=== PATIENT | male | born 1985 | race Two or more races ===

== ENCOUNTER 2017-06-05 05:11 | Inpatient (IN) | payer SELFPAY ==
[2017-06-05 05:41] LABS: Hematocrit 42 % (42-52); Hemoglobin 13.6 g/dl (14.0-18.0); Mean Corpuscular HGB Conc 33 g/dl (31-36); Mean Corpuscular Hemoglobin 30 pg (27-31); Mean Corpuscular Volume 93 fL (80-94); Mean Platelet Volume 9 um3 (7.4-10.4); Red Blood Count 4.48 10^6/ul (4.0-5.4); Red Cell Distribution Width 15 % (10.5-15); White Blood Count 10.9 10^3/ul (3.5-10.8)
[2017-06-05 05:55] LABS: ALT 12 U/L (7-52); AST 17 U/L (13-39); Acetaminophen < 15 mcg/mL; Alcohol < 10 mg/dL (<10); Alkaline Phosphatase 86 U/L (34-104); Anion Gap 3 mmol/L (2-11); BUN/Creatinine Ratio 12.5 (8-20); Blood Urea Nitrogen 11 mg/dL (6-24); CO2 Carbon Dioxide 30 mmol/L (22-32); Calcium 8.9 mg/dL (8.6-10.3); Chloride 106 mmol/L (101-111); EGFR African American 129.1 (>60); EGFR Non-African American 100.4 (>60); Globulin 2.9 g/dL (2-4); Glucose 86 mg/dL (70-100); Salicylate < 2.50 mg/dL (<30); Sodium 139 mmol/L (133-145); Total Protein 6.9 g/dL (6.4-8.9)
[2017-06-05 06:06] LABS: TSH (Thyroid Stimulating Horm) 0.61 mcIU/mL (0.34-5.60)
--- NOTE | 2017-06-05 06:59 | ED ---
Ashwin Alaniz Alok, scribed for Kervin Sorensen MD on 06/05/17 at 0533 . Psychiatric Complaint - HPI Summary HPI Summary: 32M presents to the ED with depression and is seeking mental health evaluation. Pt notes desire to hurt himself without plan. Pt denies self-inflicted cuts or wounds. Pt notes trouble sleeping, decreased appetite, an paranoid thoughts. Pt denies auditory hallucinations, abd pain, or lower extremity edema. Pt smokes tobacco and admits to illicit drug use. Pt denies ETOH use. Pt states he has been admitted for psychiatric evaluation before in [place]. Pt does not see a counselor but has seen one before. Pt does not take medications for depression. - History Of Current Complaint Chief Complaint: EDMentalHealth Time Seen by Provider: 06/05/17 05:16 Hx Obtained From: Patient Onset/Duration: Still Present Timing: Constant Severity Initially: Moderate Severity Currently: Moderate Character: Depressed Alleviating Factor(s): Nothing Associated Signs And Symptoms: Positive: Paranoid Behavior, Sleep Disturbance, Appetite Change. Negative: Hallucinating Has Suicidal: Denies: With A Plan PMH/Surg Hx/FS Hx/Imm Hx Endocrine/Hematology History: Denies: Hx Diabetes Cardiovascular History: Denies: Hx Hypertension - Family History Known Family History: Negative: Hypertension - Social History Occupation: Student Lives: With Family Alcohol Use: None Hx Substance Use: Yes Hx Tobacco Use: Yes Type: Cigarettes Review of Systems Negative: Fever Negative: Abdominal Pain Negative: Edema Positive: Depressed All Other Systems Reviewed And Are Negative: Yes Physical Exam - Summary Physical Exam Summary: The patient is well-nourished in no acute distress and in no acute pain. The skin is warm and dry and skin color reflects adequate perfusion. No cuts to arms. HEENT: The head is normocephalic and atraumatic. The pupils are equal and reactive. The conjunctivae are clear and without drainage. Nares are patent and without drainage. Mouth reveals moist mucous membranes and the throat is without erythema and exudate. The external ears are intact. The ear canals are patent and without drainage. The tympanic membranes are intact. Neck is supple with full range of motion and non-tender. There are no carotid bruits. There is no neck vein distension. Respiratory: Chest is non-tender. Lungs are clear to auscultation and breath sounds are symmetrical and equal. Cardiovascular: Heart is regular rate and rhythm. There is no murmur or rub auscultated. There is no peripheral edema and pulses are symmetrical and equal. Abdomen: The abdomen is soft and non-tender. There are normal bowel sounds heard in all four quadrants and there is no organomegaly palpated. Musculoskeletal: There is no back pain noted. Extremities are non-tender with full range of motion. There is good capillary refill. There is no peripheral edema or calf tenderness elicited. Neurological: Patient is alert and oriented to person, place and time. The patient has symmetrical motor strength in all four extremities. Cranial nerves are grossly intact. Deep tendon reflexes are symmetrical and equal in all four extremities. Psychiatric: The patient has an appropriate affect and does not exhibit any anxiety or depression. Patient shows poor eye-contact. Triage Information Reviewed: Yes Vital Signs On Initial Exam: Initial Vitals Temp Pulse Resp BP Pulse Ox 97.8 F 64 16 117/65 100 06/05/17 05:22 06/05/17 05:22 06/05/17 05:22 06/05/17 05:22 06/05/17 05:22 Vital Signs Reviewed: Yes Diagnostics - Vital Signs Vital Signs Temp Pulse Resp BP Pulse Ox 06/05/17 05:22 97.8 F 64 16 117/65 100 - Laboratory Lab Results: Lab Results 06/05/17 06/05/17 Range/Units 05:30 05:30 WBC 10.9 H (3.5-10.8) 10^3/ul RBC 4.48 (4.0-5.4) 10^6/ul Hgb 13.6 L (14.0-18.0) g/dl Hct 42 (42-52) % MCV 93 (80-94) fL MCH 30 (27-31) pg MCHC 33 (31-36) g/dl RDW 15 (10.5-15) % Plt Count 184 (150-450) 10^3/ul MPV 9 (7.4-10.4) um3 Neut % (Auto) 39.4 (38-83) % Lymph % (Auto) 44.3 (25-47) % [place] % (Auto) 13.1 H (1-9) % Eos % (Auto) 2.0 (0-6) % Baso % (Auto) 1.2 (0-2) % Absolute Neuts (auto) 4.3 (1.5-7.7) 10^3/ul Absolute Lymphs (auto) 4.8 (1.0-4.8) 10^3/ul Absolute Monos (auto) 1.4 H (0-0.8) 10^3/ul Absolute Eos (auto) 0.2 (0-0.6) 10^3/ul Absolute Basos (auto) 0.1 (0-0.2) 10^3/ul Absolute Nucleated RBC 0.02 10^3/ul Nucleated RBC % 0.2 Sodium 139 (133-145) mmol/L Potassium 4.0 (3.5-5.0) mmol/L Chloride 106 (101-111) mmol/L Carbon Dioxide 30 (22-32) mmol/L Anion Gap 3 (2-11) mmol/L BUN 11 (6-24) mg/dL Creatinine 0.88 (0.67-1.17) mg/dL Est GFR ( Amer) 129.1 (>60) Est GFR (Non-Af Amer) 100.4 (>60) BUN/Creatinine Ratio 12.5 (8-20) Glucose 86 (70-100) mg/dL Calcium 8.9 (8.6-10.3) mg/dL Total Bilirubin 0.20 (0.2-1.0) mg/dL AST 17 (13-39) U/L ALT 12 (7-52) U/L Alkaline Phosphatase 86 (34-104) U/L Total Protein 6.9 (6.4-8.9) g/dL Albumin 4.0 (3.2-5.2) g/dL Globulin 2.9 (2-4) g/dL Albumin/Globulin Ratio 1.4 (1-3) TSH 0.61 (0.34-5.60) mcIU/mL Salicylates < 2.50 (<30) mg/dL Acetaminophen < 15 mcg/mL Serum Alcohol < 10 (<10) mg/dL Result Diagrams: 06/05/17 05:30 06/05/17 05:30 Lab Statement: Any lab studies that have been ordered have been reviewed, and results considered in the medical decision making process. Course/Dx - Course Course Of Treatment: 32 y/o male presents with depression seeking mental health evaluation. Patient medically clear for MHU evaluation @ 0557 - Differential Dx/Clinical Impression Differential Diagnosis/HQI/PQRI: Positive: Depression, Suicidal Ideation Provider Diagnosis: Depression Discharge - Discharge Plan Condition: Stable Disposition: OTHER Discharge Disposition Comment: pending mental health evaluation Referrals: Non Staff,Doctor [Primary Care Provider] - The documentation as recorded by the Ashwin hooks Alok accurately reflects the service I personally performed and the decisions made by me, Kervin Sorensen MD.
[2017-06-05 08:02] LABS: Urine Bilirubin Negative (Negative); Urine Glucose Negative (Negative); Urine Nitrite Negative (Negative)
[2017-06-05 08:30] LABS: Benzodiazepine Urine Screen None Detected (None Detect)
[2017-06-05] MEDS ORDERED: Al Hydrox/Mg Hydrox/Simet LIQ* 30 ML UDC PO PRN (09:07)
[2017-06-05] MEDS: Vitamin THERAPEUTIC TAB PO SCH (14:17)
--- NOTE | 2017-06-05 18:19 | HP ---
HISTORY AND PHYSICAL: DATE OF ADMISSION: 06/05/17 SUPERVISING PSYCHIATRIST: Dr. Mac Ward * (DICTATED BY DEEPAK FULLER NP) JUSTIFICATION FOR ADMISSION: The patient presents to the emergency room via ambulance with complaints of depression and suicidal ideation with thoughts to jump off a bridge. He has been engaging in polysubstance use including heroin, cocaine, and marijuana. He is currently undomiciled and recently lost custody of his children. CHIEF COMPLAINT: "I don't want to talk about it." HISTORY OF PRESENT ILLNESS: Most of the information obtained is through the electronic medical record as the patient was minimally cooperative with interview. The patient was brought in by ambulance and at approximately 5 o' clock this morning. He called the ambulance with intent to come to the hospital due to increased depression and suicide ideation for the past week. He reports that his situation has worsened since CPS involvement last Friday. According to the mental health evaluation, Yovany had thoughts of jumping off a bridge. He and his children's mother broke up last week and he has not had a place to live since then. Also, CPS has been involved in the past because mother was not taking care of the children. Apparently, the child is in foster care in [facility]. He states that she is currently but he is pretty certain that that is not his child. After decision was made to admit the patient, I tried to let him sleep before meeting with him. At time of interview, the patient was sleeping, easy to arouse. He states he does not want to talk about any of this, but was cooperative with some of the questions asked. He reports he has been homeless for the past week. He endorses depressed mood and hopelessness and helplessness. He endorses flashbacks and nightmares. He endorses generalized anxiety. When I tried to ask further questions, he states "talking about all this shit is going to make me snap." He endorses decreased sleep approximately 2 hours a day. He states his appetite fluctuates and his weight went up a little bit and attributes this to stopping using substances approximately a week ago. His information today during interview is inconsistent with information in the mental health eval. This is likely due to him to be in a tired state. We will reevaluate psychiatric signs and symptoms again tomorrow. PAST PSYCHIATRIC HISTORY: Yovany states he was in [place] [facility] approximately in 2007. He reports being in [facility] in 2015. This information is also a little bit incongruent with the mental health evaluation. Yovany states that he has taken psychotropic medications in the past and states "I don't know what this shit is called." Later, he reports that in childhood, he has taken Prozac and Zoloft likely. He also recalls taking ADHD medications. When asked about use of trazodone for sleep, he states "I've taken them before and that makes it hard to sleep, I have dreams, and I couldn' t breathe." According to the mental health evaluation, Yovany found his mother in 2007. PAST MEDICAL HISTORY: No active medical problems that he is aware of. According to the evaluation in the emergency room, he denies history of diabetes or hypertension. He denied any pain or distress. He denied any self- inflicted injuries. PRIMARY CARE PROVIDER: No current primary care provider. MEDICATIONS: He denies any current medications. ALLERGIES: PENICILLIN. FAMILY PSYCHIATRIC HISTORY: Unknown at this time. SOCIAL HISTORY: He states he was raised in many cities in [place] including [facility], and [place]. He had been living with the mother of his children. He said he is of black and [place] descent. He states he is single, unmarried. He reports he has children, but did not want to give me their names or ages. He reports smoking cigarettes approximately 1-1/2 packs per day. He states that he stopped using substances approximately a week ago and denies withdrawal symptoms. He denies street use of Suboxone or methadone. His urine drug screen was positive for cocaine and cannabis. Further psychosocial history to be obtained when the patient is cooperative with health and social care teacher. PHYSICAL EXAMINATION I defer to the emergency room exam. The patient refuses physical exam today. He is noted to have bilateral tattoos on both arms. No cuts, no lacerations or abrasions. VITAL SIGNS: This morning, temperature 98.4, pulse 62, respiratory rate 18, O2 sat of 100%, blood pressure 110/65. Height 5 feet 11 inches, 140 pounds. MENTAL STATUS EXAM: The patient is lying in bed with covers either up to his chin or over his head. He is irritable and evasive. He is vague with answers and declines to go into details. He is alert and oriented x3. His concentration is poor. His memory is fair. His mood is angry. Affect constricted. Speech is soft and mumbled. Thought process is circumstantial. Thought content is positive for SI, negative for delusions, HI, or . Insight and judgment are poor. LABORATORY DATA: From emergency room this morning, his white blood cell count was 10.9, hemoglobin 13.6. CBC otherwise unremarkable. Chemistry was within normal limits. TSH normal at 0.61 and as stated above, his urine drug screen was positive for cocaine and cannabis. His toxicology was negative for salicylates, acetaminophen, and alcohol. DIAGNOSES: [place] I: Cocaine use disorder, cannabis use disorder, opiate use disorder by the patient's report; rule out posttraumatic stress disorder. [place] II: Deferred. [place] III: No active medical problem. [place] IV: Severe psychosocial stressors related to homelessness, loss of relationship with children and girlfriend, financial strain. [place] V: 30. ASSESSMENT: Yovany is a 32-year-old black [place] male, who presented to the emergency department with reports of increased depression and suicidal ideation. He reports past suicidal attempts and posttraumatic stress disorder due to finding his mother . He recently broke up with mother of his children and is homeless and there is CPS involvement, so he does not have contact with his children. He reports trying to abstain from heroin, cocaine, and cannabis, and is agreeable to substance use treatment. PLAN: Admit the patient to the psychiatric unit on voluntary status. Code status is full. Safety checks every 15 minutes. He will be encouraged to participate in supportive milieu and individual and group psychoeducation. We will obtain an MMPI for diagnostic clarification. The patient requests nicotine replacement, which will be made available to him. He agrees to use of clonidine for anxiety and with added benefit on ADHD symptoms and he agrees to use mirtazapine at bedtime for both mood and sleep and appetite. Discharge planning will include gaining collateral from current relationships pending release of information from the patient. Client also expressed desire to pursue inpatient substance use treatment. Estimated length of stay is 5 to 7 days. DEEPAK FULLER, JONO [id number]/[facility] #: [id number] [facility]
[2017-06-05] MEDS: Mirtazapine TAB* 15 MG PO SCH (21:00)
[2017-06-05] MEDS: cloNIDine TAB* 0.1 MG PO SCH (21:00)
[2017-06-05] MEDS: Nicotine Patch Removal NOTE FOLLOW UP SCH (21:01)
[2017-06-06] MEDS: Vitamin THERAPEUTIC TAB PO SCH (09:44)
[2017-06-06] MEDS: cloNIDine TAB* 0.1 MG PO SCH ×2 (09:44→20:37)
[2017-06-06] MEDS: Nicotine PATCH 21 MG/24 HR* PATCH TRANSDERM SCH (11:03)
[2017-06-06] MEDS ORDERED: Mouth Piece, Nicotine* 1 EACH CARTRIDGE INH ONE (12:00)
[2017-06-06] MEDS: hydrOXYzine HCL TAB* 50 MG PO PRN (12:52)
[2017-06-06] MEDS: Nicotine GUM* 2 MG PO PRN (12:53)
--- NOTE | 2017-06-06 15:18 | PN ---
Subjective - Subjective Subjective: Yovany has been exclusive to self except for meals. Patient is intermittently interactive with staff. He is recanting all statements made in the ED. He states he wants to be discharged in order to pursue DSS benefits and custody of his 4yo daughter, Kimmy. He states he "I don't do drugs anymore, I just messed up 2 days ago." He states he does not need inpatient rehab but would be willing to be referred to outpatient rehab. He goes on to describe frustrations with the mother of his children selling the children's food stamps , him being sanctioned by DSS and difficulty with obtaining help in [place]. He expresses urgency in trying to get custody of Kimmy before she is placed in a foster home and prison rights are lost. He placed a formal 72-hour notice for discharge at 1pm. Objective - Appearance Appearance: Thin Framed Dysmorphic Features: Yes Hygiene: Normal Grooming: Disheveled - Behavior Psychomotor Activities: Abnormal-Increased - fidgety, changes position often Exhibits Abnormal Movement: Yes - Attitude and Relatedness Attitude and Relatedness: Minimally Cooperative Eye Contact: Poor - Speech Quality: Pressured Latencies: Normal Quantity: Copious - Mood Patient's Decription of Mood: "Fine" Assessment - Assessment Merits Inpatient Hospitalization: For Immediate Safety, For Stabilization, For Discharge Planning, Pending Safe DC Plan Inpatient DSM-IV Dx: cocaine induced mood d/o; cannabis use d/o; opiate use d/o ; tobacco use d/o Clinical Impression: Yovany is a 32yo black/nigerian male who presented to the ED with suicidal ideation and a plan. He presents as agitated and actively withdrawing from substances. He recants the statements he made in the ED and denies suicidal ideation or need for inpatient substance use treatment. He initiated a formal 72-hour request for discharge at 1pm. Plan - Plan Treatment Plan: Name: YOVANY PEMBERTON Birthdate: 1985 [id number] Will continue to treat and monitor for s/sx of withdrawal. Will encourage [facility] programming and partnering for discharge planning. Add thorazine prn for agitation/anxiety. Continued Medication Management: Different Medication Medications: Current Medications Acetaminophen (Tylenol Tab*) 650 mg PO Q4H PRN PRN Reason: for pain; or Temp >101 F Al Hydrox/Mg Hydrox/Simethicone (Maalox Plus*) 30 ml PO Q4H PRN PRN Reason: INDIGESTION Clonidine HCl (Catapres Tab*) 0.1 mg PO BID [facility] Last Admin: 06/06/17 09:44 Dose: 0.1 mg Hydroxyzine HCl (Atarax Tab*) 50 mg PO Q6H PRN PRN Reason: AGITATION/ANXIETY/INSOMNIA Last Admin: 06/06/17 12:52 Dose: 50 mg Mirtazapine (Remeron Tab*) 15 mg PO BEDTIME [facility] Last Admin: 06/05/17 21:00 Dose: 15 mg Multivitamins (Theragran Tab*) 1 tab PO DAILY [facility] Last Admin: 06/06/17 09:44 Dose: 1 tab Nicotine (Nicotine Inhaler*) 10 mg INH Q2H PRN PRN Reason: CRAVING Nicotine (Nicotine Patch 21 Mg/24 Hr*) 1 patch TRANSDERM DAILY@0800 [facility] Last Admin: 06/06/17 11:03 Dose: 1 patch Nicotine Polacrilex (Nicotine Gum*) 2 mg PO Q2H PRN PRN Reason: CRAVING Last Admin: 06/06/17 12:53 Dose: 2 mg Pharmacy Profile Note (Nicotine Patch Removal Note*) 1 note FOLLOW UP 2100 [facility] Last Admin: 06/05/17 21:01 Dose: Not Given - Discharge Plan Discharge Plan: Outpatient Follow Up Outpatient Program: [facility]
[2017-06-06] MEDS: chlorproMAZINE TAB* 50 MG PO PRN (16:00)
[2017-06-06] MEDS: Mirtazapine TAB* 15 MG PO SCH (20:37)
[2017-06-06] MEDS: Nicotine Patch Removal NOTE FOLLOW UP SCH (20:38)
[2017-06-07] MEDS: cloNIDine TAB* 0.1 MG PO SCH ×2 (08:09→20:34)
[2017-06-07] MEDS: Nicotine PATCH 21 MG/24 HR* PATCH TRANSDERM SCH (08:09)
[2017-06-07] MEDS: Vitamin THERAPEUTIC TAB PO SCH (08:09)
[2017-06-07] MEDS: Acetaminophen TAB* 325 MG PO PRN (08:10)
[2017-06-07] MEDS: Nicotine Inhaler* 10 MG AMP INH PRN ×4 (10:48→20:34)
[2017-06-07] MEDS: chlorproMAZINE TAB* 50 MG PO PRN (11:52)
[2017-06-07] MEDS: Nicotine GUM* 2 MG PO PRN ×2 (17:32→20:34)
[2017-06-07] MEDS: hydrOXYzine HCL TAB* 50 MG PO PRN (18:23)
[2017-06-07] MEDS: Mirtazapine TAB* 15 MG PO SCH (20:34)
[2017-06-07] MEDS: Nicotine Patch Removal NOTE FOLLOW UP SCH (20:36)
[2017-06-08] MEDS: Nicotine PATCH 21 MG/24 HR* PATCH TRANSDERM SCH (08:12)
[2017-06-08] MEDS: Nicotine Inhaler* 10 MG AMP INH PRN ×6 (08:12→21:12)
[2017-06-08] MEDS: cloNIDine TAB* 0.1 MG PO SCH ×2 (08:13→20:54)
[2017-06-08] MEDS: Vitamin THERAPEUTIC TAB PO SCH (08:13)
[2017-06-08] MEDS: Nicotine GUM* 2 MG PO PRN ×3 (10:14→18:28)
[2017-06-08] MEDS: chlorproMAZINE TAB* 50 MG PO PRN ×2 (12:53→20:52)
--- NOTE | 2017-06-08 19:15 | PN ---
Subjective - Subjective Subjective: Found Yovany in the milieu working on MMPI questionnaire, he endorses improving mood, denies SI/HI or withdrawal symptoms. He is agreeable to continued admission, (has not rescinded the 72-hour notice however). He reports plans to move in with his brother after discharge. Per staff, he has been in good behavioral control and adherent to unit's routines. Objective - Appearance Appearance: Healthy Appearing Dysmorphic Features: No Hygiene: Normal Grooming: Well Kept - Behavior Psychomotor Activities: Normal Exhibits Abnormal Movement: No - Attitude and Relatedness Attitude and Relatedness: Superficially Cooperative Eye Contact: Fair - Speech Quality: Pressured Latencies: Normal Quantity: Appropriate - Mood Patient's Decription of Mood: "Okay" - Affect Observed Affect: Non-labile Affect Consistent with: Dysphoria - Thought Process Patient's Thought Process: Over Inclusive Thought Content: No Passive Wish, No Suicidal Planning, No Homicidal Ideation, No Paranoid Ideation - Sensorium Experiencing Hallucinations: No, Sensorium is Clear - Level of Consciousness Level of Consciousness: Alert Orientation: Yes Intact - Impulse Control Impulse Control: Intact - Insight and Judgement Insight and Judgement: Poor - Group Participation Particating in Group Activities: Yes - Medication Management Medication Management Adherence: Yes Assessment - Assessment Merits Inpatient Hospitalization: [facility], For Discharge Planning Inpatient DSM-IV Dx: cocaine induced mood d/o; cannabis use d/o; opiate use d/o ; tobacco use d/o Clinical Impression: Safe on checks, endorsing reduced distress level, better willing to follow his care team recommendations. Plan - Plan Treatment Plan: Name: YOVANY PEMBERTON Birthdate: 1985 [id number] Medications: Current Medications Acetaminophen (Tylenol Tab*) 650 mg PO Q4H PRN PRN Reason: for pain; or Temp >101 F Last Admin: 06/07/17 08:10 Dose: 650 mg Al Hydrox/Mg Hydrox/Simethicone (Maalox Plus*) 30 ml PO Q4H PRN PRN Reason: INDIGESTION Chlorpromazine HCl (Thorazine Tab*) 50 mg PO Q6H PRN PRN Reason: AGITATION/ANXIETY Last Admin: 06/08/17 12:53 Dose: 50 mg Clonidine HCl (Catapres Tab*) 0.1 mg PO BID [facility] Last Admin: 06/08/17 08:13 Dose: 0.1 mg Hydroxyzine HCl (Atarax Tab*) 50 mg PO Q6H PRN PRN Reason: AGITATION/ANXIETY/INSOMNIA Last Admin: 06/07/17 18:23 Dose: 50 mg Mirtazapine (Remeron Tab*) 15 mg PO BEDTIME [facility] Last Admin: 06/07/17 20:34 Dose: 15 mg Multivitamins (Theragran Tab*) 1 tab PO DAILY [facility] Last Admin: 06/08/17 08:13 Dose: 1 tab Nicotine (Nicotine Inhaler*) 10 mg INH Q2H PRN PRN Reason: CRAVING Last Admin: 06/08/17 18:28 Dose: 10 mg Nicotine (Nicotine Patch 21 Mg/24 Hr*) 1 patch TRANSDERM DAILY@0800 [facility] Last Admin: 06/08/17 08:12 Dose: 1 patch Nicotine Polacrilex (Nicotine Gum*) 2 mg PO Q2H PRN PRN Reason: CRAVING Last Admin: 06/08/17 18:28 Dose: 2 mg Pharmacy Profile Note (Nicotine Patch Removal Note*) 1 note FOLLOW UP 2100 [facility] Last Admin: 06/07/17 20:36 Dose: 1 note - Discharge Plan Discharge Plan: Drug/Alcohol Rehab Outpatient Program: [facility]
[2017-06-08] MEDS: Nicotine Patch Removal NOTE FOLLOW UP SCH (20:54)
[2017-06-08] MEDS: Mirtazapine TAB* 15 MG PO SCH (20:54)
[2017-06-08] MEDS: Acetaminophen TAB* 325 MG PO PRN (21:12)
[2017-06-09 07:22] VITALS: BP 104/65
[2017-06-09] MEDS: Acetaminophen TAB* 325 MG PO PRN (07:29)
[2017-06-09] MEDS: Nicotine Inhaler* 10 MG AMP INH PRN ×3 (08:18→13:12)
[2017-06-09] MEDS: Vitamin THERAPEUTIC TAB PO SCH (08:19)
[2017-06-09] MEDS: cloNIDine TAB* 0.1 MG PO SCH (08:19)
[2017-06-09] MEDS: Nicotine PATCH 21 MG/24 HR* PATCH TRANSDERM SCH (08:19)
[2017-06-09] MEDS ORDERED: buPROPion TAB* 100 MG PO SCH (11:00)
[2017-06-09] MEDS: Nicotine GUM* 2 MG PO PRN ×2 (11:08→13:12)
--- NOTE | 2017-06-09 22:11 | CONS ---
PSYCHOLOGICAL REPORT: DATE OF CONSULT: 06/09/17 REASON FOR REFERRAL: Yovany was referred for psychological testing in order to help with diagnostic impressions with concerns regarding characterological vulnerabilities consistent with antisocial personality disorder. Concerns are also to address possible lethality as Yovany had made statements regarding jumping from a bridge. RELEVANT HISTORY: Yovany describes recently losing custody of a son secondary to relapse with substance abuse. Historically, he describes heroin as his drug of choice, but more recently has been using cocaine and marijuana. Yovany describes falling into despair after losing custody of his son who currently is in placement with a family member. An older daughter apparently has been placed in foster care system in [place]. He described how his family would have taken her, but she is a high needs child who is difficult to manage. Yovany describes how the mother of the children is "slowly killing herself with drugs." Yovany reports completing 10th grade at [employer] and subsequently has struggled to maintain employment. 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 He describes historically being eligible for SSI and is making plans to complete his application for this program. He describes missing an appointment while in [place] secondary to being unfamiliar with the [facility] and was experiencing a great deal of personal chaos at the time. BEHAVIORAL OBSERVATIONS: Yovany is a 32-year-old -Mac[place] male who currently is homeless, but describes having personal resources connected to his family which will be helpful. In particular, he describes having a brother who is in a similar situation in terms of trying to regain custody of his children and remain sober, with hopes of being able to find an apartment with him in order to support each other. He describes intentions of engaging in [employer] programming where he expects to be enrolled and kept busy with scheduling there. He is hopeful of regaining custody of his son and currently denies any further thoughts of suicide. He characterized his statements as being out of anger and frustration and now that has resolved. He expresses prosocial goals and interests. Indeed, Yovany presents with good affect and was attentive and participatory in unit programing this morning and cooperative with individual discussion addressing feedback regarding test results. He initiated conversation and asked questions in a spontaneous fashion. TEST RESULTS: Yovany provides a valid protocol on this administration of the MMPI-2 with clinical concerns addressing impulsivity and anger. He has a minimal elevation on the FB scale (T=67), with subsequent elevations on both the psychopathic deviate and paranoia scales on clinical indices (T=75 and 73 respectively). He has a similar elevation on the schizophrenia scale with a lesser elevation on the anxiety index as well. Of note, his depression scale is subclinical (T=63). Feedback with Yovany emphasized importance of adhering to social rules and conventions in conduct and more reasoning. Feedback encouraged diminished expressed impulsivity with allusion to how he used the quiet room over the weekend to try to manage anger and frustration. Yovany expressed some regret that he had gone into the padded room and punched the cat as he apparently hurt his had to some degree. He describes the importance of using his voice in a more effective way moving forward and refraining from acting in an aggressive and impulsive fashion like that. He impressed as having good insight in regards to this discussion and his judgment appears to have cleared since his admission. IMPRESSIONS AND RECOMMENDATIONS: Yovany anticipates discharge either today or likely tomorrow, with hopes of adherence to the aforementioned participation in the [facility] Outpatient Program. He describes having good family supports here locally and intends to comply with treatment recommendations. Continuing therapeutic interventions should focus on substance abuse history and propensity towards impulsive acting out. Currently, Yovany impresses as being cooperative and forward thinking and has spontaneously expressed prosocial goals in regards to his family role as well as in refraining from continued illicit drug activity. 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 Bybee II: Rule out antisocial personality traits. Bybee III: No medical concerns presently. Bybee IV: Severe psychosocial stressors related to homelessness and loss of familial status. Bybee V: Current GAF 45. [id number]/CPS #: [id number] [facility]
--- NOTE | 2017-06-10 15:16 | DS ---
DISCHARGE SUMMARY: DATE OF ADMISSION: 06/05/17 DATE OF DISCHARGE: 06/09/17 SUPERVISING PSYCHIATRIST: Mac Ward MD DISCHARGE DIAGNOSES: Montgomery I: Posttraumatic stress disorder, cocaine use disorder, cannabis use disorder, tobacco use disorder. Montgomery II: Consider antisocial personality traits. Montgomery III: No active medical problem. Montgomery IV: Psychosocial stressors related to tenuous housing, Child Protective Service involvement with his children, and unemployment and financial strain. CONDITION AT THE TIME OF DISCHARGE: Improved. Today, Yovany states he is very much willing to pursue outpatient mental health and substance use treatment. He apologizes for his aggressive behavior while on the unit. He states that he wants to get his life in order and pursue stable housing. He states that he wants to be able to provide for his daughter and does not want her to be in the foster care system. He has contacted family members in [place] and is looking forward to residing with his brother who is also in recovery. He states that they are going to look into obtaining section 8 housing. In the meantime, he is also agreeable to temporary housing at the alf. Also, he has an aunt with whom he can stay temporarily at [facility]. Yovany has been pleasant and cooperative on the unit over the weekend. He has been participating in groups and been social with staff and peers. He denied suicidal ideation and he denies urges to use substances. He is knowledgeable about barriers to recovery and risk of relapse. He states he wants to avoid people that he knows from previous substance use and he wants to avoid the [place] area. He inquires about medication for ADHD and reports being treated for this as a child. He is agreeable to a non-control substance such as Wellbutrin. He states understanding that clonidine is effective for ADHD-related impulse control as well. He reports efficacy with mirtazapine for sleep and would like to continue these current medications after discharge. Yovany states that he would also like to pursue mental health counseling in order to treat his trauma and abuse history. MENTAL STATUS EXAM: The patient is a tall, thin-framed black male who appears stated age. He is appropriately groomed and wearing his own clothing. He has an eyebrow piercing and a small amount of facial hair. He is cooperative and answers questions fully. He is alert and oriented x3. Concentration is fair. Memory is 3/3. Mood is "good." Affect is bright. Speech is rapid with normal volume. Thought process is coherent and goal directed. Thought content is negative for SI, HI, AA, audio or visual hallucinations. His insight is good. His judgment is fair. Fund of knowledge is good. Instructions will be given to the patient by nursing staff. Medications are bupropion 100 mg p.o. q.a.m., clonidine 0.1 mg p.o. b.i.d., and mirtazapine 15 mg p.o. q.h.s. He denies tobacco cessation or nicotine replacement. DIET: Regular. ACTIVITY: Ambulation as tolerated. There are no pending labs or diagnostic studies at the time of discharge. He will follow up with [facility] and [facility] as outpatient. He states knowledge of these and he will be given appointments by discharge planning. HOSPITAL COURSE: A. Reason for admission: The patient presented to the emergency room via ambulance with complaints of depression and suicidal ideation with thoughts to jump off a bridge. He had been engaging in polysubstance abuse including heroin, cocaine, and marijuana. He recently attempted to relocate to [place], then lost housing and custody of his child. B. Psychiatric treatment rendered: Yovany was admitted to the psychiatric unit on voluntary status. Code status is full. He was placed on 15-minute checks for safety and encouraged to participate in supportive milieu and individual and group psychoeducation. He initiated a 72-hour notice to request discharge on Friday at 1 p.m. He was clearly agitated and recanting his reports made in the emergency room. He was requesting to leave. Discharge planning and myself did not feel this was safe plan at that time and encouraged the patient to remain on the unit during the 72-hour notice to engage in programming and enable discharge planning. Shortly after this discussion, client was agitated and was destructive in his room. He accepted the offer of p.o. Thorazine and was able to calm himself in a quiet room. He was increasingly cooperative on the unit and engaged in programming. He reported to be triggered at one time and asked to use the quiet room voluntarily, punched cat. He complained of right hand pain, but denied need for medical intervention. Today, the client denies pain. There is no obvious deformity. The patient completed an MMPI for diagnostic clarification, please see the report by Dr. Hans Rutherford. The patient is agreeable to current medications and he asked about use of medication for ADHD, Wellbutrin was added today. The patient agrees to follow up with [facility] and [facility]. He will be staying with his brother and other family members temporarily while obtaining DSS assistance for housing. The patient has been safe on all checks and due to obligation to treat in least restrictive setting, discharge is planned for today. The patient has expressed appreciation for staff's efforts to help with obtaining DSS services and psychiatric services for after care. DEEPAK FULLER NP [id number]/CPS #: [id number] TORST[facility]
== END 2017-06-09 16:25 | disposition home or self-care (01) | DRG 897 ==
LOC: ED 05:11 → BSU 09:07
PROVIDERS: ADMIT Psychiatry & Neurology Psychiatry; ATTEND Psychiatry & Neurology Psychiatry
DX: F14.94 Cocaine use, unspecified with cocaine-induced mood disorder (principal); F11.90 Opioid use, unspecified, uncomplicated; R45.851 Suicidal ideations; F12.90 Cannabis use, unspecified, uncomplicated; F17.210 Nicotine dependence, cigarettes, uncomplicated; F32.9 Major depressive disorder, single episode, unspecified; F43.10 Post-traumatic stress disorder, unspecified; Z59.0 Homelessness; Z88.0 Allergy status to penicillin
CPT/HCPCS: 36415; 80053; 80307; 80320; 80329; 81003; 84443; 85025; 96102; 99222; 99231; 99238; A9270-GY; G0480

== ENCOUNTER → 2017-06-29 20:06 | Emergency (ER) | payer MEDICAID ==
[~2017-06-29 20:06] MED LIST: Mirtazapine TAB* 15 MG PO ONE; Mouth Piece, Nicotine* 1 EACH CARTRIDGE INH ONE; Mouth Piece, Nicotine* 1 EACH CARTRIDGE INH PRN; Mouth Piece, Nicotine* 1 EACH CARTRIDGE ONE; Nicotine Inhaler* 10 MG AMP INH ONE
[2017-06-29 20:59] LABS: Hematocrit 45 % (42-52); Hemoglobin 14.9 g/dl (14.0-18.0); Mean Corpuscular HGB Conc 33 g/dl (31-36); Mean Corpuscular Hemoglobin 30 pg (27-31); Mean Corpuscular Volume 91 fL (80-94); Mean Platelet Volume 10 um3 (7.4-10.4); Red Blood Count 4.91 10^6/ul (4.0-5.4); Red Cell Distribution Width 15 % (10.5-15); White Blood Count 9.1 10^3/ul (3.5-10.8)
[2017-06-29 21:00] LABS: Urine Bilirubin Negative (Negative); Urine Glucose Negative (Negative); Urine Nitrite Negative (Negative)
[2017-06-29 21:12] LABS: Acetaminophen < 15 mcg/mL; Alcohol < 10 mg/dL (<10); Salicylate < 2.50 mg/dL (<30)
[2017-06-29 21:13] LABS: Benzodiazepine Urine Screen None Detected (None Detect)
[2017-06-29 21:13] LABS: ALT 12 U/L (7-52); AST 16 U/L (13-39); Albumin 4.4 g/dL (3.2-5.2); Alkaline Phosphatase 79 U/L (34-104); Anion Gap 4 mmol/L (2-11); Blood Urea Nitrogen 13 mg/dL (6-24); CO2 Carbon Dioxide 28 mmol/L (22-32); Calcium 9.4 mg/dL (8.6-10.3); Chloride 105 mmol/L (101-111); EGFR African American 82.3 (>60); Globulin 2.8 g/dL (2-4); Glucose 102 mg/dL (70-100); Potassium 3.5 mmol/L (3.5-5.0); Sodium 137 mmol/L (133-145); Total Protein 7.2 g/dL (6.4-8.9)
[2017-06-29 21:22] LABS: TSH (Thyroid Stimulating Horm) 0.15 mcIU/mL (0.34-5.60)
--- NOTE | 2017-06-29 21:50 | ED ---
Corazon Alaniz Alfonso, scribed for Qasim Oliva MD on 06/29/17 at 205 . Psychiatric Complaint - HPI Summary HPI Summary: This patient is a 32 year old M ADRIÁN presenting to [facility] with a chief complaint of SI since earlier today. Patient state I do not feel like living anymore. He also states he has not yet attempted to harm himself, but would jump off a bridge. Symptoms aggravated by recent stress (losing a daughter to foster care last week) and alleviated by nothing. Patient reports~insomnia (two days of no sleep), marijuana use, and cocaine use. Patient medically cleared for MHE at 2031. - History Of Current Complaint Chief Complaint: EDMentalHealth Time Seen by Provider: 06/29/17 20:21 Hx Obtained From: Patient Onset/Duration: Sudden Onset, Lasting Hours - earlier today, Still Present Timing: Constant Severity Initially: Moderate Severity Currently: Moderate Aggravating Factor(s): Recent Stress Alleviating Factor(s): Nothing Associated Signs And Symptoms: Positive: Sleep Disturbance Has Suicidal: Reports: Thoughts, With A Plan Ingestion History: Type/Name Of Drug - Marijuana and cocaine - Allergies/Home Medications Allergies/Adverse Reactions: Allergies Allergy/AdvReac Type Severity Reaction Status Date / Time Penicillins Allergy Hives Verified 06/05/17 13:36 PMH/Surg Hx/FS Hx/Imm Hx Endocrine/Hematology History: Denies: Hx Diabetes Cardiovascular History: Denies: Hx Hypertension Sensory History: Denies: Hx Contacts or Glasses, Hx Hearing Aid Opthamlomology History: Denies: Hx Contacts or Glasses Psychiatric History: Reports: Hx Depression, Hx Post Traumatic Stress Disorder, Hx Inpatient Treatment, Hx Substance Abuse Denies: Hx of Violent Episodes Against Others Infectious Disease History: Denies: Traveled Outside the [place] in Last 30 Days - Family History Known Family History: Negative: Hypertension - Social History Alcohol Use: None Hx Substance Use: Yes Substance Use Type: Reports: Cocaine, Marijuana Substance Use Comment - Amount & Last Used: 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 Hx Tobacco Use: Yes Smoking Status (MU): Heavy Every Day Tobacco Smoker Type: Cigarettes Amount Used/How Often: 1 pack cigarettes/day, has never used other forms of tobacco Have You Smoked in the Last Year: Yes Review of Systems Neurological: Other - SI and insomnia Positive: Other - stress, marijuana and cocaine use All Other Systems Reviewed And Are Negative: Yes Physical Exam Triage Information Reviewed: Yes Vital Signs On Initial Exam: Initial Vitals Temp Pulse Resp BP Pulse Ox 99.2 F 88 16 128/83 100 06/29/17 21:19 06/29/17 21:19 06/29/17 21:19 06/29/17 21:19 06/29/17 21:19 Vital Signs Reviewed: Yes Appearance: Positive: Well-Appearing, No Pain Distress Skin: Positive: Warm, Skin Color Reflects Adequate Perfusion, Dry Head/Face: Positive: Normal Head/Face Inspection Eyes: Positive: Normal ENT: Positive: Normal ENT inspection Neck: Positive: Supple, Nontender Respiratory/Lung Sounds: Positive: Clear to Auscultation, Breath Sounds Present Cardiovascular: Positive: RRR Abdomen Description: Positive: Nontender, Soft Bowel Sounds: Positive: Present Musculoskeletal: Positive: Normal Neurological: Positive: Normal, Sensory/Motor Intact, Alert, Oriented to Person Place, Time, CN Intact II-III Psychiatric: Positive: Affect/Mood Appropriate Diagnostics - Vital Signs Vital Signs Temp Pulse Resp BP Pulse Ox 06/29/17 21:19 99.2 F 88 16 128/83 100 - Laboratory Lab Results: Lab Results 06/29/17 06/29/17 06/29/17 Range/Units 20:20 20:20 20:32 WBC 9.1 (3.5-10.8) 10^3/ul RBC 4.91 (4.0-5.4) 10^6/ul Hgb 14.9 (14.0-18.0) g/dl Hct 45 (42-52) % MCV 91 (80-94) fL MCH 30 (27-31) pg MCHC 33 (31-36) g/dl RDW 15 (10.5-15) % Plt Count 152 (150-450) 10^3/ul MPV 10 (7.4-10.4) um3 Neut % (Auto) 66.7 (38-83) % Lymph % (Auto) 24.3 L (25-47) % Hartley % (Auto) 7.5 (1-9) % Eos % (Auto) 0.4 (0-6) % Baso % (Auto) 1.1 (0-2) % Absolute Neuts (auto) 6.1 (1.5-7.7) 10^3/ul Absolute Lymphs (auto) 2.2 (1.0-4.8) 10^3/ul Absolute Monos (auto) 0.7 (0-0.8) 10^3/ul Absolute Eos (auto) 0 (0-0.6) 10^3/ul Absolute Basos (auto) 0.1 (0-0.2) 10^3/ul Absolute Nucleated RBC 0.01 10^3/ul Nucleated RBC % 0.1 Sodium (133-145) mmol/L Potassium (3.5-5.0) mmol/L Chloride (101-111) mmol/L Carbon Dioxide (22-32) mmol/L Anion Gap (2-11) mmol/L BUN (6-24) mg/dL Creatinine (0.67-1.17) mg/dL Est GFR ( Amer) (>60) Est GFR (Non-Af Amer) (>60) BUN/Creatinine Ratio (8-20) Glucose (70-100) mg/dL Calcium (8.6-10.3) mg/dL Total Bilirubin (0.2-1.0) mg/dL AST (13-39) U/L ALT (7-52) U/L Alkaline Phosphatase (34-104) U/L Total Protein (6.4-8.9) g/dL Albumin (3.2-5.2) g/dL Globulin (2-4) g/dL Albumin/Globulin Ratio (1-3) TSH (0.34-5.60) mcIU/mL Urine Color Yellow Urine Appearance Clear Urine pH 5.0 (5-9) Ur Specific Posen 1.017 (1.010-1.030) Urine Protein Negative (Negative) Urine Ketones Trace H (Negative) Urine Blood Negative (Negative) Urine Nitrate Negative (Negative) Urine Bilirubin Negative (Negative) Urine Urobilinogen Negative (Negative) Ur Leukocyte Esterase Negative (Negative) Urine Glucose Negative (Negative) Urine Ascorbic Acid * H (Negative) Salicylates (<30) mg/dL Urine Opiates Screen Presumptive positive H (None Detect) Acetaminophen mcg/mL Ur Barbiturates Screen None detected (None Detect) Ur Phencyclidine Scrn None detected (None Detect) Ur Amphetamines Screen None detected (None Detect) U Benzodiazepines Scrn None detected (None Detect) Urine Cocaine Screen Presumptive positive H (None Detect) U Cannabinoids Screen Presumptive positive H (None Detect) Serum Alcohol (<10) mg/dL 06/29/17 Range/Units 20:32 WBC (3.5-10.8) 10^3/ul RBC (4.0-5.4) 10^6/ul Hgb (14.0-18.0) g/dl Hct (42-52) % MCV (80-94) fL MCH (27-31) pg MCHC (31-36) g/dl RDW (10.5-15) % Plt Count (150-450) 10^3/ul MPV (7.4-10.4) um3 Neut % (Auto) (38-83) % Lymph % (Auto) (25-47) % Hartley % (Auto) (1-9) % Eos % (Auto) (0-6) % Baso % (Auto) (0-2) % Absolute Neuts (auto) (1.5-7.7) 10^3/ul Absolute Lymphs (auto) (1.0-4.8) 10^3/ul Absolute Monos (auto) (0-0.8) 10^3/ul Absolute Eos (auto) (0-0.6) 10^3/ul Absolute Basos (auto) (0-0.2) 10^3/ul Absolute Nucleated RBC 10^3/ul Nucleated RBC % Sodium 137 (133-145) mmol/L Potassium 3.5 (3.5-5.0) mmol/L Chloride 105 (101-111) mmol/L Carbon Dioxide 28 (22-32) mmol/L Anion Gap 4 (2-11) mmol/L BUN 13 (6-24) mg/dL Creatinine 1.30 H (0.67-1.17) mg/dL Est GFR ( Amer) 82.3 (>60) Est GFR (Non-Af Amer) 64.0 (>60) BUN/Creatinine Ratio 10.0 (8-20) Glucose 102 H (70-100) mg/dL Calcium 9.4 (8.6-10.3) mg/dL Total Bilirubin 0.70 (0.2-1.0) mg/dL AST 16 (13-39) U/L ALT 12 (7-52) U/L Alkaline Phosphatase 79 (34-104) U/L Total Protein 7.2 (6.4-8.9) g/dL Albumin 4.4 (3.2-5.2) g/dL Globulin 2.8 (2-4) g/dL Albumin/Globulin Ratio 1.6 (1-3) TSH 0.15 L (0.34-5.60) mcIU/mL Urine Color Urine Appearance Urine pH (5-9) Ur Specific Posen (1.010-1.030) Urine Protein (Negative) Urine Ketones (Negative) Urine Blood (Negative) Urine Nitrate (Negative) Urine Bilirubin (Negative) Urine Urobilinogen (Negative) Ur Leukocyte Esterase (Negative) Urine Glucose (Negative) Urine Ascorbic Acid (Negative) Salicylates < 2.50 (<30) mg/dL Urine Opiates Screen (None Detect) Acetaminophen < 15 mcg/mL Ur Barbiturates Screen (None Detect) Ur Phencyclidine Scrn (None Detect) Ur Amphetamines Screen (None Detect) U Benzodiazepines Scrn (None Detect) Urine Cocaine Screen (None Detect) U Cannabinoids Screen (None Detect) Serum Alcohol < 10 (<10) mg/dL Result Diagrams: 06/29/17 20:32 06/29/17 20:32 Lab Statement: Any lab studies that have been ordered have been reviewed, and results considered in the medical decision making process. Course/Dx - Course Course Of Treatment: Mr. Prather has been medically cleared and is awaiting MHE. - Differential Dx/Clinical Impression Provider Diagnosis: Suicide ideation Discharge - Discharge Plan Condition: Stable Disposition: OTHER Discharge Disposition Comment: Signed out pending shift change. Referrals: Non Staff,Doctor [Primary Care Provider] - The documentation as recorded by the Corazon hooks Alfonso accurately reflects the service I personally performed and the decisions made by , Qasim Oliva MD.
[2017-06-30 11:26] VITALS: BP 134/66
== END ==
LOC: ED 20:06
DX: R45.851 Suicidal ideations (principal); F32.9 Major depressive disorder, single episode, unspecified; Z04.8 Encounter for examination and observation for other specified reasons; Z88.0 Allergy status to penicillin; F14.90 Cocaine use, unspecified, uncomplicated; F12.90 Cannabis use, unspecified, uncomplicated; F17.210 Nicotine dependence, cigarettes, uncomplicated
CPT/HCPCS: 36415; 80053; 80307; 80320; 80329; 81003; 84443; 85025; 99284; A9270-GY; G0480